=== PATIENT | male | born 1945 | race Caucasian/White ===

== ENCOUNTER → 2017-04-07 | Outpatient (CLI) | payer MEDICARE, OTHER ==
[~2017-04-07] MED LIST: ASPIRIN 81M81 MG/TA2 PO; CARDI-OMEGA1000 MG PO; CELEXA 20MG20 MG/TAB PO; FLONASE NASAL S16 GM NS; GLUCOPHAGE500 MG/TAB PO; GLUCOTROL 5M5 MG/TAB PO; LOPRESSOR 225 MG/TAB PO; LORTAB 5/500 501 TAB PO; MOBIC15 MG PO; NORVASC2.5 MG PO; PLAVIX 75MG TAB75 MG PO; TOPAMAX 25MG25 M1 PO; ZESTRIL 10MG10 MG PO; ZOCOR 40MG40 MG PO; [UNRECOGNIZED DRUG - OTHER] PO
== END ==
LOC: MHCPAIN 09:19
DX: G89.29 Other chronic pain (principal); M47.817 Spondylosis without myelopathy or radiculopathy, lumbosacral region; M54.16 Radiculopathy, lumbar region; M53.3 Sacrococcygeal disorders, not elsewhere classified
CPT/HCPCS: G0463

== ENCOUNTER → 2017-04-15 | Outpatient (CLI) | payer MEDICARE, OTHER | LOC: MHCPAIN 08:05 | DX: M47.817 Spondylosis without myelopathy or radiculopathy, lumbosacral region (principal); M48.06 Spinal stenosis, lumbar region | CPT/HCPCS: J1100; Q9967 ==

== ENCOUNTER → 2017-05-14 | Outpatient (CLI) | payer MEDICARE, OTHER | LOC: MHCPAIN 08:49 | DX: G89.29 Other chronic pain (principal); M47.817 Spondylosis without myelopathy or radiculopathy, lumbosacral region; M53.3 Sacrococcygeal disorders, not elsewhere classified | CPT/HCPCS: G0463 ==

== ENCOUNTER → 2017-05-20 | Outpatient (CLI) | payer MEDICARE, OTHER | LOC: MHCPAIN 08:45 | DX: M47.817 Spondylosis without myelopathy or radiculopathy, lumbosacral region (principal) | CPT/HCPCS: J1040; Q9967 ==

== ENCOUNTER → 2017-06-22 | Outpatient (CLI) | payer MEDICARE, OTHER ==
[~2017-06-22] MED LIST changes: +ANTIVERT 12.512.5 MG PO; +B-12 500 MCG PO; +CANA100T PO; +COLACE 100100 MG/CAP PO; +CRESTOR 10MG10 MG PO; +DULCOLAX STOOL100 MG PO; +FLOMAX 0.40.4 MG/CAP PO; +FLONASEALLERGY NS; +GENTEAL 10 ML10 M1 OP; +GICOCKTAIL PO; +GLUCOPHAGE1000 MG PO; +IMDUR 30MG30 MG/TAB; +IMDUR 30MG30 MG/TAB PO; +IMDUR 60MG60 MG/TAB PO; +LACTULOSE10 GM/153 PO; +MUCINEX 60600 MG/TA1 PO; +NITROSTAT0.4 MG/TAB SL; +OMEGA-3 1000 MG1 CAP PO; +PLAVIX 75MG TAB75 MG; +PRINIVIL10 MG PO; +RANEXA 500MG T500 MG PO; +ROCEPHIN 2GM VIAL21 IV; +SENNA-LAX8.6 MG PO; +TOPROL XL 50MG50 MG PO; +VANCOCIN HCL1 GM IV; +VITAMIN B-1000 MCG/T PO; +VITAMIN C500 MG PO; +VITAMIN D 1001000 IU PO; +VITAMIN D PO; +ZANTAC 150MG T150 MG PO; +[UNRECOGNIZED DRUG - CODE] PO
== END ==
LOC: MHCPAIN 09:03
DX: G89.29 Other chronic pain (principal); M47.27 Other spondylosis with radiculopathy, lumbosacral region; M53.3 Sacrococcygeal disorders, not elsewhere classified; Z79.82 Long term (current) use of aspirin; Z79.02 Long term (current) use of antithrombotics/antiplatelets
CPT/HCPCS: G0463

== ENCOUNTER 2018-06-22 23:39 | Inpatient (IN) | payer MEDICARE, OTHER ==
[~2018-06-22] VITALS: Ht 185.4 cm; Wt 102.2 kg
[~2018-06-22 23:39] MED LIST changes: -ANTIVERT 12.512.5 MG PO; -B-12 500 MCG PO; -CANA100T PO; -COLACE 100100 MG/CAP PO; -CRESTOR 10MG10 MG PO; -DULCOLAX STOOL100 MG PO; -FLOMAX 0.40.4 MG/CAP PO; -FLONASEALLERGY NS; -GENTEAL 10 ML10 M1 OP; -GICOCKTAIL PO; -GLUCOPHAGE1000 MG PO; -IMDUR 30MG30 MG/TAB; -IMDUR 30MG30 MG/TAB PO; -IMDUR 60MG60 MG/TAB PO; -LACTULOSE10 GM/153 PO; -MUCINEX 60600 MG/TA1 PO; -NITROSTAT0.4 MG/TAB SL; -OMEGA-3 1000 MG1 CAP PO; -PLAVIX 75MG TAB75 MG; -PRINIVIL10 MG PO; -RANEXA 500MG T500 MG PO; -ROCEPHIN 2GM VIAL21 IV; -SENNA-LAX8.6 MG PO; -TOPROL XL 50MG50 MG PO; -VANCOCIN HCL1 GM IV; -VITAMIN B-1000 MCG/T PO; -VITAMIN C500 MG PO; -VITAMIN D 1001000 IU PO; -VITAMIN D PO; -ZANTAC 150MG T150 MG PO; -[UNRECOGNIZED DRUG - CODE] PO
[2018-06-23 00:26] LABS: BASO # 0.1 (0.0-0.2); BASO % 0.9 % (0.0-2.0); EOS # 0.3 (0.0-0.7); EOS % 4.5 % (0-4.0); GRAN # 3.1 (1.4-6.5); GRAN % 47.2 % (42.2-75.2); HEMOGLOBIN 11.1 g/dl (13.5-18.0); LYMPH # 2.4 (1.2-3.4); LYMPH % 37.5 % (20.0-51.0); MEAN CELL VOLUME 93 fl (80.0-100.0); MEAN CORPUSCULAR HEMOGLOBIN 32 pg (27.0-31.0); MEAN CORPUSCULAR HGB CONC 34 g/dl (33.0-37.0); MEAN PLATELET VOLUME 10.2 fl (7.4-10.4); MONO # 0.6 (0.1-0.6); MONO % 9.6 % (1.7-9.3); PLATELET COUNT 197 K/mm3 (130-400); RED BLOOD COUNT 3.51 M/mm3 (4.20-5.60); REDCELL DISTRIBUTION WIDTH-CV 13.2 % (11.5-14.5)
[2018-06-23 00:29] LABS: HEMATOCRIT 32.8 % (42.0-52.0)
[2018-06-23 00:33] LABS: PROTHROMBIN TIME 11.9 SECONDS (9.7-12.8)
[2018-06-23 00:41] LABS: ALANINE AMINOTRANSFERASE 38 U/L (21-72); ALBUMIN 3.5 gm/dL (3.5-5.0); ALKALINE PHOSPHATASE 50 U/L (50-136); ANION GAP 9 mmol/L (7-16); AST,SGOT 29 U/L (15-37); BILIRUBIN,TOTAL 0.7 mg/dL (0.0-1.0); BLOOD UREA NITROGEN 29 mg/dL (9-20); CALCIUM 7.9 mg/dL (8.4-10.2); CARBON DIOXIDE 27 mmol/L (22-30); CHLORIDE 102 mmol/L (98-107); CREATININE, serum 1.42 mg/dL (0.66-1.25); GLUCOSE 97 mg/dL (74-106); POTASSIUM 3.7 mmol/L (3.4-5.0); SODIUM 137 mmol/L (137-145); TOTAL PROTEIN 6.6 gm/dL (6.4-8.2)
[2018-06-23 01:03] LABS: TROPONIN-I < 0.012 ng/mL (0.000-0.034)
[2018-06-23] MEDS ORDERED: CRESTOR 10MG10 MG PO (02:53)
[2018-06-23 03:34] VITALS: BP 115/75; PULSE 76; TEMP 97.2
[2018-06-23 07:01] LABS: ALBUMIN 3.5 gm/dL (3.5-5.0); BILIRUBIN,TOTAL 0.9 mg/dL (0.0-1.0); CALCIUM 7.8 mg/dL (8.4-10.2); CHOLESTEROL RISK RATIO 5.1; CREATININE, serum 1.25 mg/dL (0.66-1.25); MAGNESIUM 1.6 mg/dL (1.6-2.3); PHOSPHOROUS 3.4 mg/dL (2.5-4.5); POTASSIUM 3.7 mmol/L (3.4-5.0); TOTAL PROTEIN 6.6 gm/dL (6.4-8.2)
[2018-06-23 07:34] VITALS: BP 133/72; PULSE 71; TEMP 98.2
[2018-06-23 12:24] VITALS: BP 120/57; PULSE 60; TEMP 97.9
[2018-06-23 14:18] LABS: BASO # 0.1 (0.0-0.2); BASO % 0.7 % (0.0-2.0); EOS # 0.2 (0.0-0.7); EOS % 3.6 % (0-4.0); GRAN # 3.3 (1.4-6.5); GRAN % 49.5 % (42.2-75.2); HEMOGLOBIN 11.5 g/dl (13.5-18.0); LYMPH # 2.4 (1.2-3.4); LYMPH % 35.9 % (20.0-51.0); MEAN CELL VOLUME 95 fl (80.0-100.0); MEAN CORPUSCULAR HEMOGLOBIN 31 pg (27.0-31.0); MEAN CORPUSCULAR HGB CONC 33 g/dl (33.0-37.0); MEAN PLATELET VOLUME 11.4 fl (7.4-10.4); MONO # 0.7 (0.1-0.6); PLATELET COUNT 182 K/mm3 (130-400); RED BLOOD COUNT 3.73 M/mm3 (4.20-5.60); REDCELL DISTRIBUTION WIDTH-CV 13.5 % (11.5-14.5)
[2018-06-23 14:19] LABS: HEMATOCRIT 35.4 % (42.0-52.0)
[2018-06-23 14:48] LABS: COLLECTION METHOD CLEAN CATCH
[2018-06-23 14:54] LABS: PH 7 (5-8); SQUAMOUS EPITHELIAL None Seen /hpf; URINE APPEARANCE Clear; URINE BACTERIA None Seen /hpf; URINE BILIRUBIN Negative (NEGATIVE); URINE BLOOD Negative (NEGATIVE); URINE COLOR Straw; URINE GLUCOSE Negative (NEGATIVE); URINE KETONE Negative (NEGATIVE); URINE LEUKOCYTE ESTERASE Negative (NEGATIVE); URINE NITRATE Negative (NEGATIVE); URINE PROTEIN(semi-quant) Negative (NEGATIVE); URINE RBC None Seen /hpf; URINE UROBILINOGEN Negative (NEGATIVE)
[2018-06-23 16:55] VITALS: BP 124/71; PULSE 63; TEMP 98.7
[2018-06-23 20:17] VITALS: BP 116/49; PULSE 63; TEMP 97.7
[2018-06-23 22:07] VITALS: BP 129/66; PULSE 67; TEMP 98.2
[2018-06-23 23:10] LABS: FOLATE (FOLIC ACID) 11.1 ng/mL (7.0-31.4)
[2018-06-24 04:02] VITALS: BP 107/59; PULSE 63; TEMP 97.9
[2018-06-24 07:44] LABS: BASO # 0.1 (0.0-0.2); BASO % 1.3 % (0.0-2.0); EOS # 0.3 (0.0-0.7); EOS % 4.9 % (0-4.0); GRAN # 3.3 (1.4-6.5); GRAN % 50.9 % (42.2-75.2); HEMATOCRIT 38.3 % (42.0-52.0); HEMOGLOBIN 12.9 g/dl (13.5-18.0); LYMPH # 2.1 (1.2-3.4); LYMPH % 33.3 % (20.0-51.0); MEAN CELL VOLUME 93 fl (80.0-100.0); MEAN CORPUSCULAR HEMOGLOBIN 31 pg (27.0-31.0); MEAN CORPUSCULAR HGB CONC 34 g/dl (33.0-37.0); MEAN PLATELET VOLUME 10.9 fl (7.4-10.4); MONO # 0.6 (0.1-0.6); MONO % 9.3 % (1.7-9.3); PLATELET COUNT 201 K/mm3 (130-400); RED BLOOD COUNT 4.11 M/mm3 (4.20-5.60); REDCELL DISTRIBUTION WIDTH-CV 13.2 % (11.5-14.5)
[2018-06-24 07:57] VITALS: BP 113/69; PULSE 60; TEMP 98.2
[2018-06-24 07:57] LABS: C-REACTIVE PROTEIN 0.8 mg/dL (0.0-0.9); CALCIUM 7.8 mg/dL (8.4-10.2); CREATININE, serum 1.14 mg/dL (0.66-1.25); MAGNESIUM 1.9 mg/dL (1.6-2.3); POTASSIUM 3.8 mmol/L (3.4-5.0)
[2018-06-24] MEDS ORDERED: PLAVIX 75MG TAB75 MG PO (10:10)
[2018-06-24 11:16] VITALS: BP 118/62; PULSE 63; TEMP 97.7
[2018-06-24 15:24] LABS: PARTIAL THROMBOPLASTIN TIME 34.1 SECONDS (26.0-37.0)
[2018-06-24 16:57] VITALS: BP 134/71; PULSE 72; TEMP 97.8
[2018-06-24 21:10] VITALS: BP 113/56; PULSE 80; TEMP 97.5
[2018-06-24 22:31] LABS: PARTIAL THROMBOPLASTIN TIME 92.9 SECONDS (26.0-37.0)
[2018-06-25] VITALS (7 sets, daily range): BP systolic 85–130; BP diastolic 30–63; PULSE 60–69; TEMP 97.9–99.1
[2018-06-25 07:02] LABS: BASO # 0.1 (0.0-0.2); BASO % 0.8 % (0.0-2.0); EOS # 0.4 (0.0-0.7); EOS % 5.3 % (0-4.0); GRAN # 3.5 (1.4-6.5); GRAN % 49.4 % (42.2-75.2); HEMOGLOBIN 12.3 g/dl (13.5-18.0); LYMPH # 2.5 (1.2-3.4); LYMPH % 34.8 % (20.0-51.0); MEAN CELL VOLUME 94 fl (80.0-100.0); MEAN CORPUSCULAR HEMOGLOBIN 32 pg (27.0-31.0); MEAN CORPUSCULAR HGB CONC 33 g/dl (33.0-37.0); MEAN PLATELET VOLUME 11.1 fl (7.4-10.4); MONO # 0.7 (0.1-0.6); MONO % 9.3 % (1.7-9.3); PLATELET COUNT 194 K/mm3 (130-400); REDCELL DISTRIBUTION WIDTH-CV 13.2 % (11.5-14.5)
[2018-06-25 07:04] LABS: HEMATOCRIT 36.8 % (42.0-52.0)
[2018-06-25 07:19] LABS: CREATININE, serum 1.22 mg/dL (0.66-1.25)
[2018-06-26 02:31] LABS: MEAN CELL VOLUME 94 fl (80.0-100.0); MEAN CORPUSCULAR HEMOGLOBIN 31 pg (27.0-31.0); MEAN CORPUSCULAR HGB CONC 33 g/dl (33.0-37.0); PLATELET COUNT 183 K/mm3 (130-400); RED BLOOD COUNT 3.54 M/mm3 (4.20-5.60); REDCELL DISTRIBUTION WIDTH-CV 13.5 % (11.5-14.5)
[2018-06-26 02:33] LABS: HEMATOCRIT 33.1 % (42.0-52.0)
[2018-06-26 04:10] VITALS: BP 105/57; PULSE 66; TEMP 98.2
[2018-06-26 07:55] VITALS: BP 110/64; PULSE 63; TEMP 98.3
[2018-06-26 11:50] VITALS: BP 94/40; PULSE 70; TEMP 97.5
[2018-06-26 15:52] VITALS: BP 93/45; PULSE 62; TEMP 98.2
[2018-06-26 19:38] VITALS: BP 108/58; PULSE 73; TEMP 98.3
[2018-06-26 19:43] VITALS: BP 132/65; PULSE 73; TEMP 99.3
[2018-06-27] VITALS: BP 123/60; PULSE 67; TEMP 98.2
[2018-06-27 08:08] VITALS: BP 108/58; PULSE 61; TEMP 97.6
[2018-06-27 08:26] LABS: BASO # 0.1 (0.0-0.2); BASO % 0.9 % (0.0-2.0); EOS # 0.3 (0.0-0.7); EOS % 4.3 % (0-4.0); GRAN # 3.4 (1.4-6.5); GRAN % 50.4 % (42.2-75.2); HEMATOCRIT 34.2 % (42.0-52.0); HEMOGLOBIN 11.3 g/dl (13.5-18.0); LYMPH # 2.2 (1.2-3.4); LYMPH % 33.3 % (20.0-51.0); MEAN CELL VOLUME 96 fl (80.0-100.0); MEAN CORPUSCULAR HEMOGLOBIN 32 pg (27.0-31.0); MEAN CORPUSCULAR HGB CONC 33 g/dl (33.0-37.0); MEAN PLATELET VOLUME 11.2 fl (7.4-10.4); MONO # 0.7 (0.1-0.6); MONO % 10.7 % (1.7-9.3); PLATELET COUNT 181 K/mm3 (130-400); RED BLOOD COUNT 3.58 M/mm3 (4.20-5.60); REDCELL DISTRIBUTION WIDTH-CV 13.5 % (11.5-14.5)
[2018-06-27 08:33] LABS: CALCIUM 8.1 mg/dL (8.4-10.2); CREATININE, serum 1.27 mg/dL (0.66-1.25); POTASSIUM 3.9 mmol/L (3.4-5.0)
[2018-06-27] MEDS ORDERED: NORVASC2.5 MG PO (10:06)
[2018-06-27] MEDS ORDERED: IMDUR 30MG30 MG/TAB PO (10:25)
[2018-06-27] MEDS ORDERED: ROCEPHIN 2GM VIAL21 IV (12:11)
[2018-06-27] MEDS ORDERED: VANCOCIN HCL1 GM IV (12:11)
[2018-06-27 12:54] VITALS: BP 109/50; PULSE 61; TEMP 98
[2018-06-27 16:53] VITALS: BP 106/52; PULSE 59; TEMP 97.9
[2018-06-27 20:21] VITALS: BP 130/61; PULSE 64; TEMP 98.1
== END 2018-06-27 23:30 | disposition home or self-care (01) | DRG 69 ==
LOC: COL.ER 23:39 → SURG 06-23 02:27 → MEDICAL 06-23 02:27 → SURG 06-23 02:27 → MEDICAL 06-23 16:00
PROVIDERS: Emergency Medicine; Internal Medicine; Nurse Practitioner Family; Physician Assistant
PROC: 05HY33Z Insertion of Infusion Device into Upper Vein, Percutaneous Approach (ICD-10-PCS; principal; 2018-06-27)
DX: G45.9 Transient cerebral ischemic attack, unspecified (principal); I33.0 Acute and subacute infective endocarditis; N17.9 Acute kidney failure, unspecified; I10 Essential (primary) hypertension; E78.5 Hyperlipidemia, unspecified; I25.10 Atherosclerotic heart disease of native coronary artery without angina pectoris; Z95.5 Presence of coronary angioplasty implant and graft; E83.42 Hypomagnesemia; E11.9 Type 2 diabetes mellitus without complications; Z79.84 Long term (current) use of oral hypoglycemic drugs
CPT/HCPCS: OP; 99232-AI; 99233-AI; A9585; C1751; G0378; G8978-GP; G8979-GP; G8987-GO; G8988-GO; G9654; J0696; J1644; J2704; J3370; J3475; J7030; J7050

== ENCOUNTER → 2018-07-01 | Outpatient (REF) ==
[~2018-07-01] MED LIST changes: +CRESTOR 10MG10 MG PO; +IMDUR 30MG30 MG/TAB PO; +ROCEPHIN 2GM VIAL21 IV; +VANCOCIN HCL1 GM IV
== END ==
LOC: ZLAB.WCH 16:10
DX: Z01.89 Encounter for other specified special examinations (principal)

== ENCOUNTER → 2018-07-04 | Outpatient (REF) ==
[2018-07-04 16:39] LABS: C-REACTIVE PROTEIN 2.5 mg/dL (0.0-0.9)
[2018-07-04 16:42] LABS: VANCOMYCIN TROUGH 22.6 ug/mL (7.00-20.00)
== END ==
LOC: ZLAB.WCH 16:10
PROVIDERS: Internal Medicine Infectious Disease
DX: Z01.89 Encounter for other specified special examinations (principal)

== ENCOUNTER → 2018-07-06 | Outpatient (REF) | LOC: ZLAB.WCH 15:28 | DX: Z01.89 Encounter for other specified special examinations (principal) ==

== ENCOUNTER → 2018-07-11 | Outpatient (REF) ==
[2018-07-11 16:54] LABS: C-REACTIVE PROTEIN 0.9 mg/dL (0.0-0.9)
[2018-07-11 16:56] LABS: VANCOMYCIN TROUGH 18.28 ug/mL (7.00-20.00)
== END ==
LOC: ZLAB.WCH 16:35
PROVIDERS: Internal Medicine Cardiovascular Disease
DX: Z01.89 Encounter for other specified special examinations (principal)

== ENCOUNTER → 2018-07-18 | Outpatient (REF) ==
[2018-07-18 16:53] LABS: C-REACTIVE PROTEIN 0.8 mg/dL (0.0-0.9)
[2018-07-18 16:55] LABS: VANCOMYCIN TROUGH 19.84 ug/mL (7.00-20.00)
== END ==
LOC: ZLAB.WCH 16:33
PROVIDERS: Internal Medicine Cardiovascular Disease
DX: Z01.89 Encounter for other specified special examinations (principal)

== ENCOUNTER → 2018-07-25 | Outpatient (REF) ==
[2018-07-25 16:09] LABS: C-REACTIVE PROTEIN 0.7 mg/dL (0.0-0.9)
[2018-07-25 16:15] LABS: VANCOMYCIN TROUGH 36.7 ug/mL (7.00-20.00)
== END ==
LOC: ZLAB.WCH 15:54
PROVIDERS: Internal Medicine Cardiovascular Disease
DX: Z01.89 Encounter for other specified special examinations (principal)

== ENCOUNTER → 2018-07-26 | Outpatient (REF) | LOC: ZLAB.WCH 16:10 | DX: Z01.89 Encounter for other specified special examinations (principal) ==

== ENCOUNTER → 2018-07-27 | Outpatient (REF) | LOC: ZLAB.WCH 16:48 | DX: Z01.89 Encounter for other specified special examinations (principal) ==

== ENCOUNTER → 2018-07-30 | Outpatient (REF) | LOC: ZLAB.WCH 12:19 | DX: Z01.89 Encounter for other specified special examinations (principal) ==

== ENCOUNTER → 2018-08-01 | Outpatient (REF) | LOC: ZLAB.WCH 16:42 | DX: Z01.89 Encounter for other specified special examinations (principal) ==

== ENCOUNTER → 2018-08-02 | Outpatient (REF) | LOC: ZLAB.WCH 16:03 | DX: Z01.89 Encounter for other specified special examinations (principal) ==

== ENCOUNTER → 2018-08-08 | Outpatient (REF) ==
[~2018-08-08] MED LIST changes: +IMDUR 60MG60 MG/TAB PO
[2018-08-08 16:11] LABS: C-REACTIVE PROTEIN 0.8 mg/dL (0.0-0.9)
[2018-08-08 16:14] LABS: VANCOMYCIN TROUGH 31.71 ug/mL (7.00-20.00)
== END ==
LOC: ZLAB.WCH 15:52
PROVIDERS: Internal Medicine Cardiovascular Disease
DX: Z01.89 Encounter for other specified special examinations (principal)

== ENCOUNTER → 2018-08-09 | Outpatient (REF) | LOC: ZLAB.WCH 14:13 | DX: Z01.89 Encounter for other specified special examinations (principal) ==

== ENCOUNTER 2018-08-10 12:56 | Outpatient (CLI) | payer MEDICARE, OTHER ==
[~2018-08-10] VITALS: Ht 185.4 cm; Wt 109.2 kg
[~2018-08-10 12:56] MED LIST changes: -IMDUR 60MG60 MG/TAB PO
[2018-08-10 13:28] LABS: HEMOGLOBIN 11.7 g/dl (13.5-18.0); MEAN CELL VOLUME 94 fl (80.0-100.0); MEAN CORPUSCULAR HEMOGLOBIN 32 pg (27.0-31.0); MEAN CORPUSCULAR HGB CONC 34 g/dl (33.0-37.0); MEAN PLATELET VOLUME 10.6 fl (7.4-10.4); PLATELET COUNT 190 K/mm3 (130-400); RED BLOOD COUNT 3.68 M/mm3 (4.20-5.60)
[2018-08-10 13:30] LABS: HEMATOCRIT 34.7 % (42.0-52.0)
[2018-08-10 13:32] LABS: PROTHROMBIN TIME 11.9 SECONDS (9.7-12.8)
[2018-08-10 13:35] LABS: CALCIUM 8.5 mg/dL (8.4-10.2); CREATININE, serum 1.16 mg/dL (0.66-1.25); POTASSIUM 4.2 mmol/L (3.4-5.0)
[2018-08-10 14:22] VITALS: BP 135/97; PULSE 65; TEMP 97
[2018-08-10] MEDS ORDERED: ZESTRIL 10MG10 MG PO (14:27)
[2018-08-10] MEDS ORDERED: LOPRESSOR 225 MG/TAB PO (14:28)
[2018-08-10] MEDS ORDERED: GLUCOTROL 5M5 MG/TAB PO (14:28)
[2018-08-10] MEDS ORDERED: PLAVIX 75MG TAB75 MG PO (14:28)
[2018-08-10] MEDS ORDERED: NORVASC2.5 MG PO (14:29)
[2018-08-10] MEDS ORDERED: IMDUR 60MG60 MG/TAB PO (14:29)
[2018-08-10] MEDS ORDERED: CELEXA 20MG20 MG/TAB PO (14:30)
[2018-08-10] MEDS ORDERED: GLUCOPHAGE500 MG/TAB PO (14:30)
[2018-08-10 15:10] VITALS: BP 137/79; PULSE 67
[2018-08-10 15:45] VITALS: BP 144/48; PULSE 68
[2018-08-10 16:00] VITALS: BP 123/66; PULSE 62
[2018-08-10 16:15] VITALS: BP 117/67; PULSE 66
[2018-08-10 16:30] VITALS: BP 151/88; PULSE 78
== END 2018-08-10 17:10 | disposition home or self-care (01) ==
LOC: COL.RAD 12:56
PROVIDERS: Internal Medicine Cardiovascular Disease
DX: B33.21 Viral endocarditis (principal); I34.0 Nonrheumatic mitral (valve) insufficiency; I70.0 Atherosclerosis of aorta; I07.1 Rheumatic tricuspid insufficiency
CPT/HCPCS: J2704

== ENCOUNTER → 2018-08-12 | Outpatient (REF) ==
[~2018-08-12] MED LIST changes: +IMDUR 60MG60 MG/TAB PO
== END ==
LOC: ZLAB.WCH 14:13
DX: Z01.89 Encounter for other specified special examinations (principal)

== ENCOUNTER → 2018-08-15 | Outpatient (REF) | LOC: ZLAB.WCH 16:00 | DX: Z01.89 Encounter for other specified special examinations (principal) ==

== ENCOUNTER → 2018-08-16 | Outpatient (REF) | LOC: ZLAB.WCH 16:32 | DX: Z01.89 Encounter for other specified special examinations (principal) ==

== ENCOUNTER → 2018-08-22 | Outpatient (REF) ==
[2018-08-22 16:32] LABS: VANCOMYCIN TROUGH 9.43 ug/mL (7.00-20.00)
[2018-08-22 16:34] LABS: C-REACTIVE PROTEIN < 0.5 mg/dL (0.0-0.9)
== END ==
LOC: ZLAB.WCH 16:16
PROVIDERS: Internal Medicine Cardiovascular Disease
DX: Z01.89 Encounter for other specified special examinations (principal)

== ENCOUNTER → 2018-08-26 | Outpatient (REF) | LOC: ZLAB.WCH 15:52 | DX: Z01.89 Encounter for other specified special examinations (principal) ==

== ENCOUNTER 2018-09-20 13:49 | Inpatient (IN) | payer MEDICARE, OTHER ==
[2018-09-20] VITALS (247 sets, daily range): BP systolic 146–160; BP diastolic 79–83; PULSE 87–102; TEMP 97.8–97.9; O2SAT 91–100
[~2018-09-20] VITALS: Ht 185.4 cm; Wt 103.0 kg
[2018-09-20] MEDS ORDERED: FLOMAX 0.40.4 MG/CAP PO (14:06)
[2018-09-20] MEDS ORDERED: NITROSTAT0.4 MG/TAB SL (14:07)
[2018-09-20 14:41] LABS: BASO # 0.1 (0.0-0.2); EOS # 0.2 (0.0-0.7); EOS % 3.1 % (0-4.0); GRAN # 4.3 (1.4-6.5); GRAN % 63.2 % (42.2-75.2); HEMATOCRIT 39.2 % (42.0-52.0); HEMOGLOBIN 13.2 g/dl (13.5-18.0); LYMPH # 1.6 (1.2-3.4); LYMPH % 23.3 % (20.0-51.0); MEAN CELL VOLUME 94 fl (80.0-100.0); MEAN CORPUSCULAR HEMOGLOBIN 32 pg (27.0-31.0); MEAN CORPUSCULAR HGB CONC 34 g/dl (33.0-37.0); MEAN PLATELET VOLUME 10.5 fl (7.4-10.4); MONO # 0.6 (0.1-0.6); MONO % 9.1 % (1.7-9.3); PLATELET COUNT 217 K/mm3 (130-400); RED BLOOD COUNT 4.18 M/mm3 (4.20-5.60); REDCELL DISTRIBUTION WIDTH-CV 12.9 % (11.5-14.5)
[2018-09-20 14:47] LABS: PROTHROMBIN TIME 10.9 SECONDS (9.7-12.8)
[2018-09-20 14:48] LABS: ALANINE AMINOTRANSFERASE 32 U/L (21-72); ALKALINE PHOSPHATASE 58 U/L (50-136); ANION GAP 9 mmol/L (7-16); AST,SGOT 29 U/L (15-37); BILIRUBIN,TOTAL 1.1 mg/dL (0.0-1.0); BLOOD UREA NITROGEN 19 mg/dL (9-20); CARBON DIOXIDE 27 mmol/L (22-30); CHLORIDE 104 mmol/L (98-107); CREATININE, serum 1.33 mg/dL (0.66-1.25); GLUCOSE 176 mg/dL (74-106); LIPASE 332 U/L (23-300); POTASSIUM 4.2 mmol/L (3.4-5.0); SODIUM 139 mmol/L (137-145); TOTAL PROTEIN 7.4 gm/dL (6.4-8.2)
[2018-09-20 14:49] LABS: PARTIAL THROMBOPLASTIN TIME 30.7 SECONDS (26.0-37.0)
[2018-09-20 15:00] LABS: TROPONIN-I < 0.012 ng/mL (0.000-0.034)
[2018-09-20] MEDS ORDERED: PRINIVIL10 MG PO (17:23)
[2018-09-20] MEDS ORDERED: LOPRESSOR 225 MG/TAB PO (17:27)
[2018-09-21] VITALS (383 sets, daily range): BP systolic 104–138; BP diastolic 66–88; PULSE 71–92; TEMP 98–98.5; O2SAT 88–100
[2018-09-21 05:53] LABS: MEAN CELL VOLUME 93 fl (80.0-100.0); MEAN CORPUSCULAR HEMOGLOBIN 31 pg (27.0-31.0); MEAN CORPUSCULAR HGB CONC 34 g/dl (33.0-37.0); MEAN PLATELET VOLUME 10.7 fl (7.4-10.4); PLATELET COUNT 197 K/mm3 (130-400); RED BLOOD COUNT 3.84 M/mm3 (4.20-5.60)
[2018-09-21 05:55] LABS: HEMATOCRIT 35.7 % (42.0-52.0)
[2018-09-21 06:09] LABS: ANION GAP 4 mmol/L (7-16); BLOOD UREA NITROGEN 18 mg/dL (9-20); CALCIUM 8.5 mg/dL (8.4-10.2); CARBON DIOXIDE 28 mmol/L (22-30); CHLORIDE 105 mmol/L (98-107); CHOLESTEROL 204 mg/dL (120-200); CHOLESTEROL RISK RATIO 6.1; CREATININE, serum 1.29 mg/dL (0.66-1.25); GLUCOSE 109 mg/dL (74-106); HDL CHOLESTEROL 33 mg/dL; LDL CHOLESTEROL 126 mg/dL; POTASSIUM 3.8 mmol/L (3.4-5.0); SODIUM 138 mmol/L (137-145); TRIGLYCERIDE 226 mg/dL
[2018-09-21 06:27] LABS: TROPONIN-I < 0.012 ng/mL (0.000-0.034)
== END 2018-09-21 12:05 | disposition short-term general hospital (02) | DRG 286 ==
LOC: COL.ER 13:49 → ICU 15:13
PROVIDERS: Emergency Medicine; Hospitalist
PROC: B2111ZZ Fluoroscopy of Multiple Coronary Arteries using Low Osmolar Contrast (ICD-10-PCS; principal; 2018-09-21)
DX: I25.110 Atherosclerotic heart disease of native coronary artery with unstable angina pectoris (principal); I33.0 Acute and subacute infective endocarditis; E11.9 Type 2 diabetes mellitus without complications; I12.9 Hypertensive chronic kidney disease with stage 1 through stage 4 chronic kidney disease, or unspecified chronic kidney disease; N18.3 Chronic kidney disease, stage 3 (moderate); E78.5 Hyperlipidemia, unspecified; Z95.5 Presence of coronary angioplasty implant and graft; Z86.73 Personal history of transient ischemic attack (TIA), and cerebral infarction without residual deficits
CPT/HCPCS: 99232-AI; J1644; J2250; J3010; J7030; Q9967

== ENCOUNTER 2018-10-20 13:18 | Observation (INO) | payer MEDICARE, OTHER ==
[~2018-10-20] VITALS: Ht 185.5 cm; Wt 102.2 kg
[~2018-10-20 13:18] MED LIST changes: +FLOMAX 0.40.4 MG/CAP PO; +NITROSTAT0.4 MG/TAB SL; +PRINIVIL10 MG PO
[2018-10-20 13:51] LABS: BASO # 0.1 (0.0-0.2); BASO % 0.8 % (0.0-2.0); EOS # 0.2 (0.0-0.7); EOS % 2.4 % (0-4.0); GRAN # 4.9 (1.4-6.5); GRAN % 62.6 % (42.2-75.2); HEMATOCRIT 40.2 % (42.0-52.0); HEMOGLOBIN 13.4 g/dl (13.5-18.0); LYMPH # 1.8 (1.2-3.4); LYMPH % 22.6 % (20.0-51.0); MEAN CELL VOLUME 93 fl (80.0-100.0); MEAN CORPUSCULAR HEMOGLOBIN 31 pg (27.0-31.0); MEAN CORPUSCULAR HGB CONC 33 g/dl (33.0-37.0); MEAN PLATELET VOLUME 11.6 fl (7.4-10.4); MONO # 0.9 (0.1-0.6); MONO % 11.3 % (1.7-9.3); PLATELET COUNT 218 K/mm3 (130-400); RED BLOOD COUNT 4.32 M/mm3 (4.20-5.60); REDCELL DISTRIBUTION WIDTH-CV 13.2 % (11.5-14.5)
[2018-10-20 14:03] LABS: INR 1.1 (0.8-3.0); PROTHROMBIN TIME 12.3 SECONDS (9.7-12.8)
[2018-10-20 14:06] LABS: PARTIAL THROMBOPLASTIN TIME 31.2 SECONDS (26.0-37.0)
[2018-10-20 15:03] LABS: ALBUMIN 3.9 gm/dL (3.5-5.0); BILIRUBIN,TOTAL 1.3 mg/dL (0.0-1.0); C-REACTIVE PROTEIN 4.7 mg/dL (0.0-0.9); CALCIUM 8.8 mg/dL (8.4-10.2); CREATININE, serum 1.25 mg/dL (0.66-1.25); TOTAL PROTEIN 7.2 gm/dL (6.4-8.2)
[2018-10-20 15:16] LABS: TROPONIN-I 0.035 ng/mL (0.000-0.034)
[2018-10-20 17:01] VITALS: BP 129/58; PULSE 69; TEMP 98.1
--- NOTE | 2018-10-20 17:01 | NUR ---
report received from SRINIVAS Reyna.patient arrived to room 314 at this time.pt oriented to room.no concerns voiced at this time.
--- NOTE | 2018-10-20 18:20 | NUR ---
Assessment complete.patient awake,alert and oriented x4.denies chest pain or discomfort at this time.breathing even and unlabored.blood sugar stable.vss.patient denies any concerns at this time.poc reviewed.call light in reach
[2018-10-20 20:29] VITALS: BP 120/63; PULSE 96; TEMP 98.2
--- NOTE | 2018-10-20 22:57 | NUR ---
PT SLEEPING. NO PAIN. NO SOA. 1.5 L O2 SHIFT ASSESSMENT COMPLETE. CALL LIGHT IN REACH
[2018-10-20 23:32] VITALS: BP 119/62; PULSE 77; TEMP 98.1
[2018-10-21] VITALS (12 sets, daily range): BP systolic 83–125; BP diastolic 34–75; PULSE 79–107; TEMP 96.8–97.7
[2018-10-21 06:20] LABS: BASO # 0.1 (0.0-0.2); BASO % 0.9 % (0.0-2.0); EOS # 0.3 (0.0-0.7); EOS % 4.9 % (0-4.0); GRAN # 3.7 (1.4-6.5); GRAN % 53.7 % (42.2-75.2); HEMATOCRIT 37.2 % (42.0-52.0); HEMOGLOBIN 12.3 g/dl (13.5-18.0); LYMPH % 28.8 % (20.0-51.0); MEAN CELL VOLUME 93 fl (80.0-100.0); MEAN CORPUSCULAR HEMOGLOBIN 31 pg (27.0-31.0); MEAN CORPUSCULAR HGB CONC 33 g/dl (33.0-37.0); MEAN PLATELET VOLUME 11.1 fl (7.4-10.4); MONO # 0.8 (0.1-0.6); MONO % 11.4 % (1.7-9.3); PLATELET COUNT 175 K/mm3 (130-400); REDCELL DISTRIBUTION WIDTH-CV 12.9 % (11.5-14.5)
[2018-10-21 06:32] LABS: CREATININE, serum 1.35 mg/dL (0.66-1.25); POTASSIUM 4.1 mmol/L (3.4-5.0)
--- NOTE | 2018-10-21 07:03 | NUR ---
had an uneventful night. pt slept through night. no pain. no needs at this time, call light in reach. report given to SRINIVAS Bain.
--- NOTE | 2018-10-21 08:46 | NUR ---
Assessment complete.patient awake,alert and oriented x4.report have chest pressure and pain early this morning.patient told Doctor He his concerns and a Lexiscan is schedule for later this morning.patient is aware and notified about NPO.patient reports having vertigo.prn meclizine ordered.will given and continue to monitor.no other concerns voiced at this time.call light in reach
--- NOTE | 2018-10-21 15:12 | NUR ---
Plan to return home with SW met with patient's and DTR in room. Patient was sleep and answered on his behalf. reports that they reside in [facility]. states pt uses [facility] for RX and PCP is Dr. Korey Joshua. indicated she will transport home. Declined homehealth services. Denies the use of any DME, no additonal needs identified. Will continue following care.
[2018-10-21] MEDS ORDERED: RANEXA 500MG T500 MG PO (16:12)
[2018-10-21] MEDS ORDERED: CELEXA 20MG20 MG/TAB PO (16:15)
[2018-10-21] MEDS ORDERED: ANTIVERT 12.512.5 MG PO (16:17)
--- NOTE | 2018-10-21 18:07 | NUR ---
PATIENT DISCHARGE HOME AT THIS TIME.ALL DISCHARGE INSTRUCTIONS DISCUSSED.ALL QUESTIONS ANSWERED.IV AND TELE DISCONTINUED.PATIENT WILL CALL DOCTOR'S OFFICE AND MAKE FOLLOW UP APPOINTMENT.THIS RN ESCORTED PATIENT OUT
== END 2018-10-21 18:15 | disposition home or self-care (01) ==
LOC: COL.ER 13:18 → MEDICAL 15:41
PROVIDERS: Family Medicine; ADMIT Internal Medicine
DX: I25.110 Atherosclerotic heart disease of native coronary artery with unstable angina pectoris (principal); I05.9 Rheumatic mitral valve disease, unspecified; E78.5 Hyperlipidemia, unspecified; G89.29 Other chronic pain; M54.5 Low back pain; N40.0 Benign prostatic hyperplasia without lower urinary tract symptoms; I12.9 Hypertensive chronic kidney disease with stage 1 through stage 4 chronic kidney disease, or unspecified chronic kidney disease; E11.22 Type 2 diabetes mellitus with diabetic chronic kidney disease; N18.9 Chronic kidney disease, unspecified; F32.9 Major depressive disorder, single episode, unspecified; Z79.82 Long term (current) use of aspirin; Z79.84 Long term (current) use of oral hypoglycemic drugs; Z79.02 Long term (current) use of antithrombotics/antiplatelets; Z88.2 Allergy status to sulfonamides; Z98.52 Vasectomy status; Z86.73 Personal history of transient ischemic attack (TIA), and cerebral infarction without residual deficits
CPT/HCPCS: A9502; G0378; G8978-GP; G8979-GP; J0706; J1650; J1815; J2785

== ENCOUNTER 2018-11-01 03:04 | Inpatient (IN) | payer MEDICARE, OTHER ==
[~2018-11-01] VITALS: Ht 185.4 cm; Wt 92.0 kg
[2018-11-01] VITALS (620 sets, daily range): BP systolic 89–120; BP diastolic 42–63; PULSE 64–75; TEMP 9.4; O2SAT 57–100
[~2018-11-01 03:04] MED LIST changes: +ANTIVERT 12.512.5 MG PO; +RANEXA 500MG T500 MG PO
[2018-11-01 03:16] LABS: BASO # 0.1 (0.0-0.2); EOS # 0.3 (0.0-0.7); EOS % 3.4 % (0-4.0); GRAN # 4.4 (1.4-6.5); GRAN % 57.9 % (42.2-75.2); HEMATOCRIT 37.8 % (42.0-52.0); HEMOGLOBIN 12.6 g/dl (13.5-18.0); LYMPH # 2.2 (1.2-3.4); LYMPH % 28.3 % (20.0-51.0); MEAN CELL VOLUME 93 fl (80.0-100.0); MEAN CORPUSCULAR HEMOGLOBIN 31 pg (27.0-31.0); MEAN CORPUSCULAR HGB CONC 33 g/dl (33.0-37.0); MONO # 0.7 (0.1-0.6); MONO % 8.9 % (1.7-9.3); PLATELET COUNT 239 K/mm3 (130-400); RED BLOOD COUNT 4.05 M/mm3 (4.20-5.60)
[2018-11-01 03:21] LABS: PROTHROMBIN TIME 11.9 SECONDS (9.7-12.8)
[2018-11-01 03:27] LABS: ALBUMIN 4.1 gm/dL (3.5-5.0); BILIRUBIN,TOTAL 0.6 mg/dL (0.0-1.0); CALCIUM 9.1 mg/dL (8.4-10.2); CREATININE, serum 1.7 mg/dL (0.66-1.25); POTASSIUM 4.2 mmol/L (3.4-5.0); TOTAL PROTEIN 7.4 gm/dL (6.4-8.2)
[2018-11-01 03:38] LABS: TROPONIN-I 0.019 ng/mL (0.000-0.034)
[2018-11-01] MEDS ORDERED: MUCINEX 60600 MG/TA1 PO (03:42)
[2018-11-01] MEDS ORDERED: [UNRECOGNIZED DRUG - CODE] PO (03:44)
[2018-11-01] MEDS ORDERED: VITAMIN B-1000 MCG/T PO (03:45)
[2018-11-01] MEDS ORDERED: VITAMIN D PO (03:46)
[2018-11-01] MEDS ORDERED: RANEXA 500MG T500 MG PO (03:46)
--- NOTE | 2018-11-01 04:51 | NUR ---
Pt admitted to ICU bed 2 from ED. Pt arrived via stretcher and placed on cardiac rehabilitation program director. Vitals stable upon arrival. Denies pain or any other discomfort. Will continue to monitor.
--- NOTE | 2018-11-01 05:41 | NUR ---
Admission assessment complete at this time. Plan of care reviewed at bedside with patient et family. Additional time taken to address any other needs or concerns. Vitals stable at this time. Denies pain or any other discomfort. Will continue to monitor.
--- NOTE | 2018-11-01 07:00 | NUR ---
REPORT RECEIVED AT BEDSIDE FROM SRINIVAS OLIVARES.
--- NOTE | 2018-11-01 07:09 | NUR ---
Bedside report given to Jeni, RNs
--- NOTE | 2018-11-01 10:13 | NUR ---
YESI FROM LAB CALLED FOR CRITICAL OF TROPONIN AT 0.220, RESULTS RELAYED TO DR. MORSE FACE TO FACE. NO NEW ORDERS RECEIVED AT THIS TIME.
[2018-11-01 14:09] LABS: PARTIAL THROMBOPLASTIN TIME 27.9 SECONDS (26.0-37.0)
--- NOTE | 2018-11-01 18:59 | NUR ---
Dr He called with critical troponin level. New orders received.
--- NOTE | 2018-11-01 19:25 | NUR ---
Bedside report received from Sanna. Pt resting in bed at this time.
--- NOTE | 2018-11-01 19:25 | NUR ---
REPORT GIVEN AT BEDSIDE TO SRINIVAS AHUMADA. MEDICATIONS AND LINES REVIEWED.
--- NOTE | 2018-11-01 21:30 | NUR ---
Pt assessment complete. Pt reports feeling very tired due to "not getting much sleep the last 24 hours". Pt was asleep when nurse entered the room although was pleasant and cooperative with assessment and medication administration. Pt denies any current complaints. Has personal belongings with urinal at bedside. Questions were encouraged at this time.
[2018-11-02] VITALS (407 sets, daily range): BP systolic 87–130; BP diastolic 52–75; PULSE 69–86; TEMP 97.4–97.8; O2SAT 84–100
--- NOTE | 2018-11-02 03:30 | NUR ---
IV drip titrated per Low dose Heparin protocol according to HepXa results.
[2018-11-02 06:10] LABS: BASO # 0.1 (0.0-0.2); EOS # 0.2 (0.0-0.7); EOS % 3.4 % (0-4.0); GRAN # 3.9 (1.4-6.5); GRAN % 54.2 % (42.2-75.2); HEMOGLOBIN 11.6 g/dl (13.5-18.0); LYMPH # 2.3 (1.2-3.4); MEAN CELL VOLUME 91 fl (80.0-100.0); MEAN CORPUSCULAR HEMOGLOBIN 31 pg (27.0-31.0); MEAN CORPUSCULAR HGB CONC 34 g/dl (33.0-37.0); MONO # 0.7 (0.1-0.6); MONO % 9.1 % (1.7-9.3); PLATELET COUNT 198 K/mm3 (130-400); RED BLOOD COUNT 3.72 M/mm3 (4.20-5.60); REDCELL DISTRIBUTION WIDTH-CV 13.1 % (11.5-14.5)
[2018-11-02 06:16] LABS: HEMATOCRIT 33.9 % (42.0-52.0)
[2018-11-02 06:23] LABS: CALCIUM 8.4 mg/dL (8.4-10.2); CREATININE, serum 1.53 mg/dL (0.66-1.25); POTASSIUM 4.1 mmol/L (3.4-5.0)
[2018-11-02 07:09] LABS: TROPONIN-I 1.29 ng/mL (0.000-0.034)
--- NOTE | 2018-11-02 07:25 | NUR ---
Bedside report received from SRINIVAS Montes.
--- NOTE | 2018-11-02 07:25 | NUR ---
Bedside report provided to Maribell Novoa RN. Pt resting in bed at this time.
--- NOTE | 2018-11-02 08:00 | NUR ---
Assessment completed. Pt states back pain improved after morphine IVP given. dental laboratory manager RNs at bedside. Left heart catherization consent signed by pt and in chart.
--- NOTE | 2018-11-02 09:44 | NUR ---
PT out of room, will screen later.
--- NOTE | 2018-11-02 09:45 | NUR ---
report given to SRINIVAS Yang.
--- NOTE | 2018-11-02 10:20 | NUR ---
REPORT RECEIVED FROM ERIC DIEGO RN. 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 WILL BE ARRIVING BACK TO ROOM SOON.
--- NOTE | 2018-11-02 10:49 | NUR ---
PT INTUBATED IN CMO & PRESIDENT A LITTLE BEFORE 10:00 8.0 TUBE PLACED 24 AT THE TEETH. SECURED WITH HOLISTER. PT TOLERATED WELL.
--- NOTE | 2018-11-02 11:00 | NUR ---
Patient arrives from laborer rags at 1035 intubated and sedated. IABP in place via the right femoral site. Patient assessed at this time. BP hypotensive, nitroglycerine discontinued. 250 cc NS bolus started per Dr. He order. All pulses palpable, Lung CTA, NG tube placed in left nare at 75 cm in. SRINIVAS Iyer, called to place PICC line per Dr. Miller order.
[2018-11-02 11:57] LABS: ARTERIAL BLD GAS O2 SATURATION 97.4 % (92-100); ARTERIAL BLD GAS TCO2 CT 22.3; ARTERIAL BLOOD GAS BASE EXCESS -2.5 (-2-2); ARTERIAL BLOOD GAS HCO3 21.2 meq/L (22-26); ARTERIAL BLOOD GAS PCO2 33.5 mmHg (35-45); ARTERIAL BLOOD GAS PO2 105.9 mmHg (80-100); ARTERIAL BLOOD GAS pH 7.42 (7.35-7.45)
--- NOTE | 2018-11-02 12:11 | NUR ---
First visit from the personal lines insurance agent. Airport Operations Specialist spoke with family member outside the dental laboratory technology teacher. No needs right now.
--- NOTE | 2018-11-02 13:00 | NUR ---
Call received from [facility] in [place]. Patient has been accepted, but does not currently have a room assignment. The transfer nurse states that she will call back with room assignment once a room is available.
--- NOTE | 2018-11-02 15:25 | NUR ---
Patient is sent with [facility] and SRINIVAS Adkins from mushroom laborer at this time.
--- NOTE | 2018-11-02 15:37 | NUR ---
report called to [facility] at this time
--- NOTE | 2018-11-02 15:40 | NUR ---
REPORT GIVEN TO SRINIVAS CONRAD AT MED
--- NOTE | 2018-11-02 15:45 | NUR ---
, JEANNE, UPDATED. SHE STATES THAT SHE PLANS TO DRIVE WITH HER DAUGHTER, FAM TO [place] AND BE WITH PATIENT.
== END 2018-11-02 15:45 | disposition short-term general hospital (02) | DRG 271 ==
LOC: COL.ER 03:04 → ICU 04:14
PROVIDERS: Emergency Medicine; Internal Medicine Cardiovascular Disease; Internal Medicine Pulmonary Disease; ADMIT Internal Medicine Pulmonary Disease
PROC: B2111ZZ Fluoroscopy of Multiple Coronary Arteries using Low Osmolar Contrast (ICD-10-PCS; principal; 2018-11-01)
PROC: 5A02210 Assistance with Cardiac Output using Balloon Pump, Continuous (ICD-10-PCS; 2018-11-01)
PROC: B2151ZZ Fluoroscopy of Left Heart using Low Osmolar Contrast (ICD-10-PCS; 2018-11-01)
PROC: 4A023N7 Measurement of Cardiac Sampling and Pressure, Left Heart, Percutaneous Approach (ICD-10-PCS; 2018-11-01)
PROC: 5A1935Z Respiratory Ventilation, Less than 24 Consecutive Hours (ICD-10-PCS; 2018-11-02)
DX: I21.4 Non-ST elevation (NSTEMI) myocardial infarction (principal); N17.9 Acute kidney failure, unspecified; I12.9 Hypertensive chronic kidney disease with stage 1 through stage 4 chronic kidney disease, or unspecified chronic kidney disease; N18.9 Chronic kidney disease, unspecified; E11.22 Type 2 diabetes mellitus with diabetic chronic kidney disease; I25.10 Atherosclerotic heart disease of native coronary artery without angina pectoris; E78.5 Hyperlipidemia, unspecified; Z95.5 Presence of coronary angioplasty implant and graft; N40.0 Benign prostatic hyperplasia without lower urinary tract symptoms; F41.8 Other specified anxiety disorders
CPT/HCPCS: 99223-AI; A4314; C1725; C1751; C1769; C1887; C1894; J0330; J0583; J1200; J1644; J2250; J2270; J2704; J3010; J7030; J7040; J7050; J7120; Q9967

== ENCOUNTER 2019-06-16 09:36 | Inpatient (IN) | payer MEDICARE, OTHER ==
[~2019-06-16] VITALS: Ht 185.4 cm; Wt 92.7 kg
[2019-06-16] VITALS (227 sets, daily range): BP systolic 101–144; BP diastolic 6–86; PULSE 59–86; TEMP 97.7–98.2; O2SAT 81–100
[~2019-06-16 09:36] MED LIST changes: +MUCINEX 60600 MG/TA1 PO; +VITAMIN B-1000 MCG/T PO; +VITAMIN D PO; +[UNRECOGNIZED DRUG - CODE] PO
[2019-06-16 10:03] LABS: BASO # 0.1 (0.0-0.2); BASO % 0.9 % (0.0-2.0); EOS # 0.1 (0.0-0.7); GRAN # 5.5 (1.4-6.5); HEMATOCRIT 37.1 % (42.0-52.0); HEMOGLOBIN 12.2 g/dl (13.5-18.0); LYMPH # 1.6 (1.2-3.4); LYMPH % 20.1 % (20.0-51.0); MEAN CELL VOLUME 96 fl (80.0-100.0); MEAN CORPUSCULAR HEMOGLOBIN 32 pg (27.0-31.0); MEAN CORPUSCULAR HGB CONC 33 g/dl (33.0-37.0); MEAN PLATELET VOLUME 10.8 fl (7.4-10.4); MONO # 0.7 (0.1-0.6); MONO % 8.6 % (1.7-9.3); PLATELET COUNT 201 K/mm3 (130-400); RED BLOOD COUNT 3.87 M/mm3 (4.20-5.60); REDCELL DISTRIBUTION WIDTH-CV 13.8 % (11.5-14.5)
[2019-06-16 10:12] LABS: PROTHROMBIN TIME 11.3 SECONDS (9.7-12.8)
[2019-06-16 10:14] LABS: PARTIAL THROMBOPLASTIN TIME 31.1 SECONDS (26.0-37.0)
[2019-06-16 10:25] LABS: ALANINE AMINOTRANSFERASE < 6 U/L (21-72); ALBUMIN 4.3 gm/dL (3.5-5.0); ALKALINE PHOSPHATASE 59 U/L (50-136); ANION GAP 12 mmol/L (7-16); AST,SGOT 27 U/L (15-37); BILIRUBIN,TOTAL 1.2 mg/dL (0.0-1.0); BLOOD UREA NITROGEN 23 mg/dL (9-20); CARBON DIOXIDE 24 mmol/L (22-30); CHLORIDE 106 mmol/L (98-107); CREATININE, serum 1.28 (0.66-1.25); GLUCOSE 168 mg/dL (74-106); LIPASE 121 U/L (23-300); SODIUM 143 mmol/L (137-145); TOTAL PROTEIN 7.4 gm/dL (6.4-8.2)
[2019-06-16 10:43] LABS: TROPONIN-I 0.253 ng/mL (0.000-0.035)
--- NOTE | 2019-06-16 14:15 | NUR ---
Pt resting on cart. Calderon RN in to prep for Cardiac Catheterization. 20 gauge IV to right hand placed by ED. Lungs upper lobes insp. wheezes that clear with cough and lower lobes clear. Bowel sounds x4. Spouse bedside
[2019-06-16] MEDS ORDERED: ASPIRIN 81M81 MG/TA2 PO (14:20)
[2019-06-16] MEDS ORDERED: VITAMIN C500 MG PO (14:20)
[2019-06-16] MEDS ORDERED: CELEXA 20MG20 MG/TAB PO (14:21)
[2019-06-16] MEDS ORDERED: CANA100T PO (14:21)
[2019-06-16] MEDS ORDERED: PLAVIX 75MG TAB75 MG PO (14:22)
[2019-06-16] MEDS ORDERED: PLAVIX 75MG TAB75 MG (14:22)
[2019-06-16] MEDS ORDERED: GENTEAL 10 ML10 M1 OP (14:23)
[2019-06-16] MEDS ORDERED: B-12 500 MCG PO (14:23)
[2019-06-16] MEDS ORDERED: COLACE 100100 MG/CAP PO (14:24)
[2019-06-16] MEDS ORDERED: GLUCOTROL 5M5 MG/TAB PO (14:25)
[2019-06-16] MEDS ORDERED: FLONASEALLERGY NS (14:25)
[2019-06-16] MEDS ORDERED: ANTIVERT 12.512.5 MG PO (14:26)
[2019-06-16] MEDS ORDERED: TOPROL XL 50MG50 MG PO (14:27)
[2019-06-16] MEDS ORDERED: GLUCOPHAGE1000 MG PO (14:27)
[2019-06-16] MEDS ORDERED: NITROSTAT0.4 MG/TAB SL (14:28)
[2019-06-16] MEDS ORDERED: CRESTOR 10MG10 MG PO (14:29)
[2019-06-16] MEDS ORDERED: TOPAMAX 25MG25 M1 PO (14:30)
[2019-06-16] MEDS ORDERED: FLOMAX 0.40.4 MG/CAP PO (14:30)
[2019-06-16] MEDS ORDERED: OMEGA-3 1000 MG1 CAP PO (14:33)
--- NOTE | 2019-06-16 15:18 | NUR ---
SEE MERGE REPORT FOR MEDICATION ADMINISTRATION WELL INTRA/POST SEDATION ASSESSMENTS. PT AND MD DISCUSSED RIGH FEMORAL ACCESS, BILATERAL GROINS PREPPED.
--- NOTE | 2019-06-16 16:45 | NUR ---
Pt admitted to ICU bed 4 at this time from slab worker. Pt arrived via room bed and placed on residential monitor upon arrival to unit. Pt denies pain or any other discomfort. Vitals stable at this time. Dr. De Los Santos in unit to see Pt.
[2019-06-16 17:54] LABS: HEMATOCRIT 37.7 % (42.0-52.0); HEMOGLOBIN 12.6 g/dl (13.5-18.0); MEAN CELL VOLUME 95 fl (80.0-100.0); MEAN CORPUSCULAR HEMOGLOBIN 32 pg (27.0-31.0); MEAN CORPUSCULAR HGB CONC 33 g/dl (33.0-37.0); MEAN PLATELET VOLUME 10.6 fl (7.4-10.4); PLATELET COUNT 188 K/mm3 (130-400); RED BLOOD COUNT 3.98 M/mm3 (4.20-5.60); REDCELL DISTRIBUTION WIDTH-CV 13.7 % (11.5-14.5)
[2019-06-16 18:32] LABS: CALCIUM 8.7 mg/dL (8.4-10.2); CREATININE, serum 1.27 (0.66-1.25); POTASSIUM 3.7 mmol/L (3.4-5.0)
--- NOTE | 2019-06-16 19:29 | NUR ---
Bedside report given to SRINIVAS Cervantes.
[2019-06-17] VITALS (357 sets, daily range): BP systolic 94–130; BP diastolic 59–91; PULSE 84–88; TEMP 98.3–98.4; O2SAT 88–100
--- NOTE | 2019-06-17 01:28 | NUR ---
PATIENT AWAKE AT THIS TIME. C/O OF CHEST PRESSURE POINTS TO UPPER CHEST. DENIES RADIATING PAIN. PATIENT LAYING FLAT IN BED. ASSISTED TO SIT ON SIDE OF BED. REPORTS RELIEF OF PAIN APPROXIMATELY 2 MINUETS AFTER SITTING UP.
[2019-06-17 05:27] LABS: BASO # 0.1 (0.0-0.2); BASO % 0.8 % (0.0-2.0); EOS # 0.2 (0.0-0.7); EOS % 1.8 % (0-4.0); GRAN # 5.3 (1.4-6.5); GRAN % 63.6 % (42.2-75.2); HEMOGLOBIN 11.8 g/dl (13.5-18.0); LYMPH # 1.9 (1.2-3.4); LYMPH % 22.9 % (20.0-51.0); MEAN CELL VOLUME 96 fl (80.0-100.0); MEAN CORPUSCULAR HEMOGLOBIN 32 pg (27.0-31.0); MEAN CORPUSCULAR HGB CONC 33 g/dl (33.0-37.0); MEAN PLATELET VOLUME 10.4 fl (7.4-10.4); MONO # 0.9 (0.1-0.6); MONO % 10.7 % (1.7-9.3); PLATELET COUNT 178 K/mm3 (130-400); REDCELL DISTRIBUTION WIDTH-CV 13.7 % (11.5-14.5)
[2019-06-17 05:30] LABS: HEMATOCRIT 35.4 % (42.0-52.0)
[2019-06-17 05:43] LABS: CALCIUM 8.3 mg/dL (8.4-10.2); CREATININE, serum 1.17 (0.66-1.25); POTASSIUM 3.7 mmol/L (3.4-5.0)
[2019-06-17 05:50] LABS: TROPONIN-I 0.308 ng/mL (0.000-0.035)
--- NOTE | 2019-06-17 07:26 | NUR ---
Report received from Helen ESPINO and care resumed.
--- NOTE | 2019-06-17 08:00 | NUR ---
Dr Billingsley in to see pt at this time. Plan will be for discharge once cleared by hospitalists.
--- NOTE | 2019-06-17 09:05 | NUR ---
Dr De Los Santos in to see pt at this time.
[2019-06-17] MEDS ORDERED: GICOCKTAIL PO (09:17)
[2019-06-17] MEDS ORDERED: ZANTAC 150MG T150 MG PO (09:17)
--- NOTE | 2019-06-17 11:03 | NUR ---
Pt given discharge instructions with present. Pt taken out by wheelchair to private care for discharge.
== END 2019-06-17 11:00 | disposition home or self-care (01) | DRG 247 ==
LOC: COL.ER 09:36 → ICU 11:37
PROVIDERS: Emergency Medicine; Internal Medicine Interventional Cardiology; Physician Assistant; ADMIT Internal Medicine
PROC: 027034Z Dilation of Coronary Artery, One Artery with Drug-eluting Intraluminal Device, Percutaneous Approach (ICD-10-PCS; principal; 2019-06-16)
PROC: 02703ZZ Dilation of Coronary Artery, One Artery, Percutaneous Approach (ICD-10-PCS; 2019-06-16)
PROC: 4A023N7 Measurement of Cardiac Sampling and Pressure, Left Heart, Percutaneous Approach (ICD-10-PCS; 2019-06-16)
PROC: B2111ZZ Fluoroscopy of Multiple Coronary Arteries using Low Osmolar Contrast (ICD-10-PCS; 2019-06-16)
DX: I21.4 Non-ST elevation (NSTEMI) myocardial infarction (principal); I50.22 Chronic systolic (congestive) heart failure; I13.0 Hypertensive heart and chronic kidney disease with heart failure and stage 1 through stage 4 chronic kidney disease, or unspecified chronic kidney disease; I25.10 Atherosclerotic heart disease of native coronary artery without angina pectoris; E11.9 Type 2 diabetes mellitus without complications; F32.9 Major depressive disorder, single episode, unspecified; E78.5 Hyperlipidemia, unspecified; N18.9 Chronic kidney disease, unspecified; N40.0 Benign prostatic hyperplasia without lower urinary tract symptoms; Z79.82 Long term (current) use of aspirin; Z79.84 Long term (current) use of oral hypoglycemic drugs; Z95.5 Presence of coronary angioplasty implant and graft; Z86.73 Personal history of transient ischemic attack (TIA), and cerebral infarction without residual deficits; Z88.2 Allergy status to sulfonamides
CPT/HCPCS: 99223-AI; 99239; C9600; J0583; J1644; J1815; J1940; J2250; J3010; J7030; Q9967

== ENCOUNTER 2019-06-24 01:31 | Emergency (ER) | payer MEDICARE, OTHER ==
[~2019-06-24] VITALS: Ht 182.9 cm; Wt 81.8 kg
[~2019-06-24 01:31] MED LIST changes: +B-12 500 MCG PO; +CANA100T PO; +COLACE 100100 MG/CAP PO; +FLONASEALLERGY NS; +GENTEAL 10 ML10 M1 OP; +GICOCKTAIL PO; +GLUCOPHAGE1000 MG PO; +OMEGA-3 1000 MG1 CAP PO; +PLAVIX 75MG TAB75 MG; +TOPROL XL 50MG50 MG PO; +VITAMIN C500 MG PO; +ZANTAC 150MG T150 MG PO
[2019-06-24 01:59] LABS: BASO # 0.1 (0.0-0.2); BASO % 0.8 % (0.0-2.0); EOS # 0.2 (0.0-0.7); EOS % 2.5 % (0-4.0); GRAN # 5.3 (1.4-6.5); GRAN % 68.6 % (42.2-75.2); HEMOGLOBIN 11.3 g/dl (13.5-18.0); LYMPH # 1.4 (1.2-3.4); LYMPH % 18.5 % (20.0-51.0); MEAN CELL VOLUME 97 fl (80.0-100.0); MEAN CORPUSCULAR HEMOGLOBIN 32 pg (27.0-31.0); MEAN CORPUSCULAR HGB CONC 33 g/dl (33.0-37.0); MONO # 0.7 (0.1-0.6); MONO % 9.2 % (1.7-9.3); PLATELET COUNT 189 K/mm3 (130-400); RED BLOOD COUNT 3.57 M/mm3 (4.20-5.60); REDCELL DISTRIBUTION WIDTH-CV 13.5 % (11.5-14.5)
[2019-06-24 02:00] LABS: HEMATOCRIT 34.5 % (42.0-52.0)
[2019-06-24 02:11] LABS: PROTHROMBIN TIME 11.2 SECONDS (9.7-12.8)
[2019-06-24 02:12] LABS: ALBUMIN 4.2 gm/dL (3.5-5.0); CALCIUM 8.7 mg/dL (8.4-10.2); CREATININE, serum 1.2 (0.66-1.25); POTASSIUM 4.1 mmol/L (3.4-5.0); TOTAL PROTEIN 7.4 gm/dL (6.4-8.2)
[2019-06-24 02:24] LABS: TROPONIN-I 0.017 ng/mL (0.000-0.035)
[2019-06-24 03:39] VITALS: TEMP 98.2
[2019-06-24 03:45] VITALS: BP 118/70; PULSE 73
== END 2019-06-24 03:45 | disposition short-term general hospital (02) ==
LOC: COL.ER 01:31
PROVIDERS: Emergency Medicine
DX: I25.110 Atherosclerotic heart disease of native coronary artery with unstable angina pectoris (principal); I10 Essential (primary) hypertension; E11.9 Type 2 diabetes mellitus without complications; E78.5 Hyperlipidemia, unspecified; I25.2 Old myocardial infarction; F41.9 Anxiety disorder, unspecified; Z79.02 Long term (current) use of antithrombotics/antiplatelets; Z79.82 Long term (current) use of aspirin; Z79.84 Long term (current) use of oral hypoglycemic drugs; Z95.5 Presence of coronary angioplasty implant and graft
CPT/HCPCS: J1170; J1644; J2270; J2405

== ENCOUNTER 2019-08-08 07:24 | Outpatient (CLI) | payer MEDICARE, OTHER ==
[~2019-08-08] VITALS: Ht 185.4 cm; Wt 92.0 kg
[~2019-08-08 07:24] MED LIST changes: +DULCOLAX STOOL100 MG PO; +LACTULOSE10 GM/153 PO; +SENNA-LAX8.6 MG PO; +VITAMIN D 1001000 IU PO
[2019-08-08 08:10] VITALS: BP 98/83; PULSE 62; TEMP 98
[2019-08-08] MEDS ORDERED: TOPROL XL100 MG PO (09:16)
[2019-08-08] MEDS ORDERED: LIPITOR 40MG TA40 MG PO (09:17)
--- NOTE | 2019-08-08 09:35 | NUR ---
Pt lisa ACTH stim test well. Pt discharged per ambulation with .
== END 2019-08-08 10:37 | disposition home or self-care (01) ==
LOC: EUO 07:24
DX: R42 Dizziness and giddiness (principal)
CPT/HCPCS: J0834